=== PATIENT | female | born 1995 | race African-American/Black ===

== ENCOUNTER 2019-02-21 04:17 | Emergency (ER) | payer OTHER ==
[2019-02-21 04:28] VITALS: BP 127/97
[2019-02-21] MEDS ORDERED: ACETAMINOPHEN 325 MG TABLET PO STA (04:38)
[2019-02-21] MEDS ORDERED: AMOXICILLIN 250 MG CAPSULE PO STA (04:39)
[2019-02-21] MEDS ORDERED: oxyCODONE 5 MG TABLET PO STA (04:39)
--- NOTE | 2019-02-21 04:40 | ED Physician Documentation ---
History of Present Illness - Stated complaint Stated Complaint: RIGHT EAR PX - Additonal information Additional information: This is a 24-year-old female presents with right ear pain. Patient began having some ear discomfort in the last week, and got worse after she flew a few days ago and then she went [place] in [place] on the way down she felt her ear was clogged she went to blow her nose and she had a sharper pain in the right ear. Today she notes a small amount of drainage from her ear, and her pain worsened overnight so she sought care here. She denies fever, she has had some nasal congestion and mild cough. Review of Systems Constitutional: denies: Fever Ears: reports: Ear pain PD PAST MEDICAL HISTORY - Past Medical History HEENT: None - Present Medications Home Medications: Ambulatory Orders Medication Instructions Recorded Confirmed Amoxicillin 500 mg PO BID #14 capsule 02/21/19 - Allergies Allergies/Adverse Reactions: Allergies Allergy/AdvReac Type Severity Reaction Status Date / Time No Known Drug Allergies Allergy Verified 02/21/19 04:27 - Family History Family history: reports: Non contributory PD ED PE NORMAL - Vitals Vital signs reviewed: Yes - General General: Alert and oriented X 3 - HEENT HEENT: Atraumatic, PERRL, Other (Right tympanic membrane is bulging and erythematous with purulent effusion. I do not see any obvious drainage in the external ear canal, and no obvious perforation of the tympanic membrane. Left TM is flat and grider. External canals normal.) - Cardiac Cardiac: RRR - Respiratory Respiratory: No respiratory distress - Extremities Extremities: No deformity - Neuro Neuro: Alert and oriented X 3 Results - Vitals Vitals: Vital Signs - 24 hr 02/21/19 04:20 Temperature 36.8 C Heart Rate 69 Respiratory 16 Rate Blood Pressure 127/97 H O2 Saturation 100 Oxygen O2 Source Room air PD MEDICAL DECISION MAKING - ED course Complexity details: considered differential (Otitis media, serous effusion, tympanic membrane perforation) ED course: Patient is well-appearing on examination, she does have a suppurative effusion in the right ear. Given her history of noticing a small amount of drainage from the ear, it is possible that she has a tympanic membrane perforation or rupture, though I do not see an obvious perforation on my examination today. Either way she appears to have an otitis media that requires antibiotic treatment, she was given the first dose of amoxicillin here. She was also given a dose of Tylenol for pain control and 1 5 mg tablet of oxycodone for pain tonight. I discussed care with decongestants and the antibiotic, I also discussed return precautions and primary care follow-up. I recommend that she not fly until she is pain- free, as pressure changes are liable to cause her more pain and potentially barotrauma to her ear. 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 She was discharged home in good condition Departure - Departure Disposition: Home, Self Care Clinical Impression: Otitis media Qualifiers: Otitis media type: suppurative Chronicity: acute Laterality: right Recurrence: not specified as recurrent Spontaneous tympanic membrane rupture: without spontaneous rupture Qualified Code(s): H66.001 - Acute suppurative otitis media without spontaneous rupture of ear drum, right ear Condition: Good Instructions: ED Otitis Media Acute Adult Follow-Up: Your,PCP [Other] Prescriptions: Amoxicillin 500 mg PO BID #14 capsule Comments: You appear to have an ear infection on the right side. Given you had drainage from the ear, you may have ruptured your eardrum, though I do not see signs of a large rupture or perforation at this time on my exam. Please take the antibiotic as prescribed, you may also take a decongestant such as Benadryl 25 to 50 mg up to 3 times a day. You may combine this with 600 mg of ibuprofen and 650 mg of Tylenol every 6 hours as needed for discomfort. If you are developing new or worsening symptoms return to the emergency department. Otherwise please follow-up with your primary doctor. Forms: Activity restrictions
[2019-02-21] MEDS ORDERED: ACETAMINOPHEN 500 MG TABLET PO STA (04:49)
== END 2019-02-21 05:00 | disposition home or self-care (01) ==
LOC: ED 04:17
DX: H66.001 Acute suppurative otitis media without spontaneous rupture of ear drum, right ear (principal)
CPT/HCPCS: 99282; 99284; A9270